=== PATIENT | female | born 1950 | race African-American/Black ===

== ENCOUNTER 2024-02-26 11:18 | Emergency (ER) | payer MEDICARE, OTHER ==
[~2024-02-26] VITALS: Ht 152.4 cm; Wt 62.0 kg
[~2024-02-26 11:18] MED LIST: AMLO10TA80 MT; FOLI0.8T23 MT; GABA-529 MT; LEVO100T9 MT; LISI40TA13 MT; METO-385 MT; PANT40TA51 MT; SEVE0.8P MT
[2024-02-26 11:36] VITALS: BP 161/58; PULSE 63; RESP 18; TEMP 98.2; O2SAT 99
== END 2024-02-26 12:31 | disposition left against medical advice (07) ==
LOC: ER 11:18
DX: S80.02XA Contusion of left knee, initial encounter (principal); I10 Essential (primary) hypertension; E11.9 Type 2 diabetes mellitus without complications; Z99.2 Dependence on renal dialysis; Z79.890 Hormone replacement therapy; Z79.899 Other long term (current) drug therapy; W01.0XXA Fall on same level from slipping, tripping and stumbling without subsequent striking against object, initial encounter; Y93.89 Activity, other specified; Y92.89 Other specified places as the place of occurrence of the external cause; Y99.8 Other external cause status
CPT/HCPCS: 99281